=== PATIENT | female | born 1975 | race Caucasian/White ===

== ENCOUNTER 2018-02-14 13:15 | Emergency (ER) | payer MEDICAID ==
[~2018-02-14] VITALS: Ht 154.9 cm; Wt 59.0 kg
[~2018-02-14 13:15] MED LIST: FLUT1DIS IH; NORCO5 PO
[2018-02-14 13:28] VITALS: BP_SYST 152
== END 2018-02-14 13:49 | disposition home or self-care (01) ==
LOC: SED 13:15
DX: B02.9 Zoster without complications (principal); R03.0 Elevated blood-pressure reading, without diagnosis of hypertension; J45.909 Unspecified asthma, uncomplicated; F41.9 Anxiety disorder, unspecified
CPT/HCPCS: 99283

== ENCOUNTER 2020-10-07 15:05 | Emergency (ER) | payer MEDICAID, SELFPAY ==
[~2020-10-07] VITALS: Ht 157.5 cm; Wt 66.7 kg
[2020-10-07 15:05] VITALS: BP_SYST 163
--- NOTE | 2020-10-07 15:10 | NUR ---
Patient to ER bed 3 to gown for evaluation. Side rails up. Report given to [facility].
--- NOTE | 2020-10-07 15:30 | NUR ---
DR BRAVO IN TO ASSESS
--- NOTE | 2020-10-07 15:56 | NUR ---
CXR, LABS COMPLETED
[2020-10-07 16:17] LABS: BASOPHILS # (AUTO) 0.1 K/uL (0.0-0.2); BASOPHILS % (AUTO) 0.6 % (0.0-2.0); EOSINOPHILS # (AUTO) 0.3 K/uL (0.0-0.4); EOSINOPHILS % (AUTO) 2.8 % (0.0-4.0); HEMATOCRIT 30.2 % (36-48); HEMOGLOBIN 9.6 g/dL (12.0-16.0); LYMPHOCYTES # (AUTO) 2.1 K/uL (1.0-5.5); LYMPHOCYTES % (AUTO) 17.4 % (20.5-51.5); MEAN CORPUSCULAR HEMOGLOBIN 23 pg (27-31); MEAN CORPUSCULAR HGB CONC 32 % (32-36); MEAN CORPUSCULAR VOLUME 72 fL (79.0-98.0); MONOCYTES # (AUTO) 0.7 K/uL (0.0-1.0); MONOCYTES % (AUTO) 5.8 % (1.7-9.3); NEUTROPHILS # (AUTO) 8.9 K/uL (1.8-7.7); NEUTROPHILS % (AUTO) 73.4 % (40.0-70.0); PLATELET COUNT (AUTO) 453 K/uL (130-430); RED BLOOD CELL COUNT(AUTO) 4.22 MIL/uL (4.2-6.2); RED CELL DISTRIBUTION WIDTH 16.1 % (9.0-15.0); WHITE BLOOD COUNT (AUTO) 12.2 K/uL (4.8-10.8)
[2020-10-07 16:38] LABS: ANION GAP 11 (5-15); CHLORIDE 104 mmol/L (98-107); GLUCOSE 99 mg/dL (70-99); POTASSIUM 3.5 mmol/L (3.5-5.1); SODIUM SERUM 139 mmol/L (136-145)
[2020-10-07 16:39] LABS: ALANINE AMINOTRANSFERASE 43 U/L (12-78); ASPARTATE AMINOTRANSFERASE 25 U/L (10-37); CALCIUM 8.5 mg/dL (8.4-11.0); CREATININE 0.77 mg/dL (0.55-1.30); GFR AFRICAN AMERICAN 103 mL/min (>90); TOTAL BILIRUBIN 0.2 mg/dL (0.0-1.0); UREA NITROGEN, BLOOD 14 mg/dL (8-21)
[2020-10-07 16:40] LABS: ALBUMIN 3.5 g/dL (3.4-4.8); LIPASE 69 U/L (73-393)
[2020-10-07 16:58] LABS: BILIRUBIN,DIRECT < 0.1 mg/dL (0.0-0.3)
[2020-10-07 17:43] VITALS: BP_SYST 135
--- NOTE | 2020-10-07 17:47 | NUR ---
Patient given written and verbal discharge instructions and verbalizes understanding. ER MD discussed with patient the results and treatment provided. Patient in stable condition. ID arm band removed. Patient educated on pain management and to follow up with PMD. Pain Scale 0/10 Opportunity for questions provided and answered. Medication side effect fact sheet provided.
== END 2020-10-07 17:43 | disposition home or self-care (01) ==
LOC: SED 15:05
DX: R07.89 Other chest pain (principal); J45.909 Unspecified asthma, uncomplicated; F41.9 Anxiety disorder, unspecified; Z79.899 Other long term (current) drug therapy; Z20.822 Contact with and (suspected) exposure to COVID-19
CPT/HCPCS: 36415; 71045; 80048; 80076; 83690; 83880; 84484; 85025; 93005; 99285